=== PATIENT | male | born 1955 | race Caucasian/White ===

== ENCOUNTER 2017-07-02 20:50 | Emergency (ER) | payer BC ==
[~2017-07-02] VITALS: Ht 177.8 cm; Wt 72.6 kg
[2017-07-02 21:01] VITALS: BP_SYST 144
[2017-07-02] MEDS ORDERED: NACL 0.9% 1,000 ML IV ONE (21:22)
[2017-07-02] MEDS ORDERED: ASPIRIN 325 MG TABLET PO ONE (21:30)
[2017-07-02] MEDS ORDERED: methylPREDNISolone SOD SUCC/PF 62.5 MG/ML VIAL IVP ONE (21:30)
[2017-07-02] MEDS ORDERED: ALBUTEROL SULFATE 0.083% 2.5 MG/3 ML VIAL.NEB IH ONE (21:30)
[2017-07-02] MEDS ORDERED: IPRATROPIUM BROM 0.5 MG/2.5 ML VIAL.NEB (ATROVENT) IH ONE (21:30)
[2017-07-02] MEDS ORDERED: MAGNESIUM SULFATE 50 ML IV ONE (21:30)
[2017-07-02] MEDS ORDERED: MORPHINE 2 MG/ML INJ. SYRINGE IVP ONE (21:30)
[2017-07-02 21:50] LABS: HEMOGLOBIN 15.4 g/dL (14.0-18.0)
[2017-07-02 21:55] LABS: HEMATOCRIT 46.3 % (36-54); MEAN CORPUSCULAR HEMOGLOBIN 33 pg (27-31); MEAN CORPUSCULAR HGB CONC 33 % (32-36); MEAN CORPUSCULAR VOLUME 99 fL (79.0-98.0); PLATELET COUNT (AUTO) 328 K/uL (130-430); RED BLOOD CELL COUNT(AUTO) 4.67 MIL/uL (4.2-6.2); RED CELL DISTRIBUTION WIDTH 13.1 % (9.0-15.0); WHITE BLOOD COUNT (AUTO) 11.4 K/uL (4.8-10.8)
[2017-07-02 21:59] LABS: CALCIUM 9.5 mg/dL (8.4-11.0); CREATININE 1.07 mg/dL (0.55-1.30); POTASSIUM 3.7 mmol/L (3.5-5.1)
[2017-07-02 22:05] LABS: TOTAL BILIRUBIN 0.5 mg/dL (0.0-1.0)
[2017-07-02 22:11] LABS: PROTHROMBIN TIME 10.2 SECS (9.5-12.5)
[2017-07-02 22:15] LABS: BAND % (MANUAL) 3 % (0-6); LYMPHOCYTES % (MANUAL) 7 % (20-46); MONOCYTES % (MANUAL) 11 % (0-11)
[2017-07-02 22:16] LABS: BASOPHILS % (MANUAL) 0 % (0-2); EOSINOPHILS % (MANUAL) 1 % (0-7)
[2017-07-02] MEDS ORDERED: BUDE6HFA INH (22:30)
[2017-07-02] MEDS ORDERED: XOPMDI INH (22:30)
[2017-07-02] MEDS ORDERED: IPRA4AER INH (22:31)
[2017-07-02] MEDS ORDERED: ALBU2.5V7 INH (22:32)
[2017-07-02] MEDS ORDERED: LOSA100T11 PO (22:32)
[2017-07-02] MEDS ORDERED: HYDR-1115 PO (22:33)
[2017-07-02] MEDS ORDERED: NOR10 PO (22:34)
[2017-07-02] MEDS ORDERED: TRIA1CAP2 PO (22:34)
[2017-07-02] MEDS ORDERED: BIMA2.5D5 OP (22:35)
[2017-07-02] MEDS ORDERED: ALPHAGAN1 OP (22:35)
[2017-07-02] MEDS ORDERED: BRIN10DR EACH EYE (22:36)
[2017-07-02] MEDS ORDERED: TIMO5DRO16 OP (22:40)
[2017-07-02 23:25] VITALS: BP_SYST 142
== END 2017-07-02 23:25 | disposition home or self-care (01) ==
LOC: SED 20:50
DX: S80.12XA Contusion of left lower leg, initial encounter (principal); J44.1 Chronic obstructive pulmonary disease with (acute) exacerbation; J40 Bronchitis, not specified as acute or chronic; I10 Essential (primary) hypertension; F17.210 Nicotine dependence, cigarettes, uncomplicated; Z76.1 Encounter for health supervision and care of foundling; Z88.5 Allergy status to narcotic agent; Z88.6 Allergy status to analgesic agent; Z79.899 Other long term (current) drug therapy; X58.XXXA Exposure to other specified factors, initial encounter; Y93.9 Activity, unspecified; Y92.89 Other specified places as the place of occurrence of the external cause; Y99.8 Other external cause status
CPT/HCPCS: 36415; 71045; 80053; 82150; 82550; 83690; 83880; 85007; 85027; 85379; 85610; 85730; 93005; 94640; 96365; 96375; 99285; J2930; J3475; J7030

== ENCOUNTER 2017-07-17 22:46 | Inpatient (IN) | payer BC ==
[~2017-07-17] VITALS: Ht 177.8 cm; Wt 74.8 kg
[2017-07-17 22:46] VITALS: BP_SYST 151
[~2017-07-17 22:46] MED LIST: ALBU2.5V7 INH; ALPHAGAN1 OP; BIMA2.5D5 OP; BRIN10DR EACH EYE; BUDE6HFA INH; HYDR-1115 PO; IPRA4AER INH; LOSA100T11 PO; NOR10 PO; TIMO5DRO16 OP; TRIA1CAP2 PO; XOPMDI INH
[2017-07-17] MEDS ORDERED: methylPREDNISolone SOD SUCC/PF 62.5 MG/ML VIAL IVP ONE (23:15)
[2017-07-17] MEDS ORDERED: NACL 0.9% 1,000 ML IV ONE (23:15)
[2017-07-17] MEDS ORDERED: IPRATROPIUM/ALBUTEROL SULFATE 3 ML AMPUL.NEB INH ONE (23:15)
[2017-07-17] MEDS ORDERED: MAGNESIUM SULFATE 50 ML IV ONE (23:15)
[2017-07-17 23:39] LABS: HEMATOCRIT 43.7 % (36-54); HEMOGLOBIN 14.9 g/dL (14.0-18.0); MEAN CORPUSCULAR HEMOGLOBIN 33 pg (27-31); MEAN CORPUSCULAR HGB CONC 34 % (32-36); MEAN CORPUSCULAR VOLUME 98 fL (79.0-98.0); PLATELET COUNT (AUTO) 279 K/uL (130-430); RED BLOOD CELL COUNT(AUTO) 4.48 MIL/uL (4.2-6.2); RED CELL DISTRIBUTION WIDTH 12.6 % (9.0-15.0); WHITE BLOOD COUNT (AUTO) 15.2 K/uL (4.8-10.8)
[2017-07-17 23:52] LABS: CALCIUM 8.1 mg/dL (8.4-11.0); CREATININE 1.06 mg/dL (0.55-1.30); POTASSIUM 3.8 mmol/L (3.5-5.1)
[2017-07-17 23:56] LABS: PROTHROMBIN TIME 10.3 SECS (9.5-12.5)
[2017-07-18 00:03] LABS: ALBUMIN 3.4 g/dL (3.4-4.8); TOTAL BILIRUBIN 0.5 mg/dL (0.0-1.0)
[2017-07-18] MEDS ORDERED: IPRATROPIUM/ALBUTEROL SULFATE 3 ML AMPUL.NEB INH ONE (00:15)
[2017-07-18 00:26] LABS: BASOPHILS % (MANUAL) 0 % (0-2); EOSINOPHILS % (MANUAL) 3 % (0-7); LYMPHOCYTES % (MANUAL) 4 % (20-46); MONOCYTES % (MANUAL) 9 % (0-11)
[2017-07-18] MEDS ORDERED: PIPERACILLIN/TAZO 3.375 GM in NS 50 ML IV ONE (00:30)
[2017-07-18] MEDS ORDERED: PIPERACILLIN/TAZOBACTAM 3.375 GM/VIAL (ZOSYN) IV ONE ×2 (00:54→04:07)
[2017-07-18 01:25] VITALS: BP_SYST 134
[2017-07-18] MEDS: IPRATROPIUM/ALBUTEROL SULFATE 3 ML AMPUL.NEB INH SCH ×6 (03:21→23:00)
[2017-07-18 03:25] VITALS: BP_SYST 134
[2017-07-18] MEDS: methylPREDNISolone SOD SUCC/PF 62.5 MG/ML VIAL IVP SCH ×4 (05:58→23:59)
[2017-07-18] MEDS: PIPERACILLIN/TAZO 3.375/DEX-IS 50 ML IV SCH ×4 (06:00→23:59)
[2017-07-18] MEDS: AZITHROMYCIN 250 MG TABLET PO SCH (06:01)
[2017-07-18] MEDS ORDERED: AZITHROMYCIN 250 MG TABLET PO SCH ×2 (07:00→09:00)
[2017-07-18 08:32] VITALS: BP_SYST 140
[2017-07-18] MEDS: DORZOLAMIDE 2% OPHTHALMIC SOLN 5ML OP SCH ×2 (09:00→21:00)
[2017-07-18] MEDS: TIMOLOL MALEATE 0.25% OPHTHALMIC DROPS 5 ML BOTH EYES SCH (09:05)
[2017-07-18] MEDS: BRIMONIDINE TARTRATE 0.2% 5 mL EYE DROPS BOTH EYES SCH ×3 (09:05→21:33)
[2017-07-18] MEDS: LOSARTAN POTASSIUM 50 MG TABLET (COZAAR) PO SCH (09:06)
[2017-07-18] MEDS: hydrALAZINE HCL 25 MG TABLET PO SCH ×2 (09:06→21:31)
[2017-07-18] MEDS: TRIAMTERENE/HYDROCHLOROTHIAZID 1 CAP CAPSULE (DYAZIDE37.5/25) PO SCH (09:06)
[2017-07-18] MEDS: amLODIPine BESYLATE 10 MG TABLET PO SCH (09:07)
[2017-07-18 11:40] VITALS: BP_SYST 153
[2017-07-18 16:00] VITALS: BP_SYST 141
[2017-07-18 20:20] VITALS: BP_SYST 141
[2017-07-18] MEDS: LATANOPROST 2.5 ML DROPS (XALATAN) OP SCH (21:34)
[2017-07-19 00:52] VITALS: BP_SYST 119
[2017-07-19] MEDS: IPRATROPIUM/ALBUTEROL SULFATE 3 ML AMPUL.NEB INH SCH ×6 (03:00→23:38)
[2017-07-19] MEDS: AZITHROMYCIN 250 MG TABLET PO SCH (06:21)
[2017-07-19] MEDS: PIPERACILLIN/TAZO 3.375/DEX-IS 50 ML IV SCH ×4 (06:21→23:49)
[2017-07-19] MEDS: methylPREDNISolone SOD SUCC/PF 62.5 MG/ML VIAL IVP SCH ×3 (06:21→21:52)
[2017-07-19 06:24] LABS: BASOPHILS # (AUTO) 0.1 K/uL (0.0-0.2); HEMATOCRIT 47.3 % (36-54); HEMOGLOBIN 15.6 g/dL (14.0-18.0); LYMPHOCYTES # (AUTO) 0.3 K/uL (1.0-5.5); LYMPHOCYTES % (AUTO) 3.1 % (20.5-51.5); MEAN CORPUSCULAR HEMOGLOBIN 33 pg (27-31); MEAN CORPUSCULAR HGB CONC 33 % (32-36); MEAN CORPUSCULAR VOLUME 100 fL (79.0-98.0); MONOCYTES # (AUTO) 0.3 K/uL (0.0-1.0); MONOCYTES % (AUTO) 3.7 % (1.7-9.3); NEUTROPHILS # (AUTO) 8.7 K/uL (1.8-7.7); NEUTROPHILS % (AUTO) 92.2 % (40.0-70.0); PLATELET COUNT (AUTO) 296 K/uL (130-430); RED BLOOD CELL COUNT(AUTO) 4.75 MIL/uL (4.2-6.2); RED CELL DISTRIBUTION WIDTH 12.5 % (9.0-15.0); WHITE BLOOD COUNT (AUTO) 9.4 K/uL (4.8-10.8)
[2017-07-19 06:47] LABS: ALANINE AMINOTRANSFERASE 38 U/L (12-78); ALBUMIN 3.3 g/dL (3.4-4.8); ASPARTATE AMINOTRANSFERASE 30 U/L (10-37); CALCIUM 8.8 mg/dL (8.4-11.0); CHLORIDE 86 mmol/L (98-107); CREATININE 1.12 mg/dL (0.55-1.30); FREE T4 (FREE THYROXINE) 0.9 ng/dL (0.6-1.6); GLUCOSE 145 mg/dL (70-99); POTASSIUM 4.2 mmol/L (3.5-5.1); SODIUM SERUM 126 mmol/L (136-145); TOTAL BILIRUBIN 0.4 mg/dL (0.0-1.0); UREA NITROGEN, BLOOD 14 mg/dL (8-21)
[2017-07-19 06:53] LABS: ANION GAP < 3 (5-15); GFR AFRICAN AMERICAN 86 mL/min (>90)
[2017-07-19 08:00] VITALS: BP_SYST 120
[2017-07-19] MEDS: LOSARTAN POTASSIUM 50 MG TABLET (COZAAR) PO SCH (08:54)
[2017-07-19] MEDS: hydrALAZINE HCL 25 MG TABLET PO SCH ×2 (08:55→21:53)
[2017-07-19] MEDS: TRIAMTERENE/HYDROCHLOROTHIAZID 1 CAP CAPSULE (DYAZIDE37.5/25) PO SCH (08:55)
[2017-07-19] MEDS: amLODIPine BESYLATE 10 MG TABLET PO SCH (08:56)
[2017-07-19] MEDS: TIMOLOL MALEATE 0.25% OPHTHALMIC DROPS 5 ML BOTH EYES SCH (08:56)
[2017-07-19] MEDS: BRIMONIDINE TARTRATE 0.2% 5 mL EYE DROPS BOTH EYES SCH ×3 (08:57→21:55)
[2017-07-19] MEDS: DORZOLAMIDE 2% OPHTHALMIC SOLN 5ML OP SCH ×2 (09:00→21:00)
[2017-07-19 12:00] VITALS: BP_SYST 127
[2017-07-19 16:32] VITALS: BP_SYST 123
[2017-07-19] MEDS ORDERED: FOLIC ACID 1 MG TABLET PO ONE (18:00)
[2017-07-19] MEDS ORDERED: THIAMINE HCL 100 MG TABLET PO ONE (18:00)
[2017-07-19 20:00] VITALS: BP_SYST 118
[2017-07-19] MEDS: LATANOPROST 2.5 ML DROPS (XALATAN) OP SCH (21:53)
[2017-07-19 23:19] VITALS: BP_SYST 134
[2017-07-20 00:06] VITALS: BP_SYST 124
[2017-07-20] MEDS: IPRATROPIUM/ALBUTEROL SULFATE 3 ML AMPUL.NEB INH SCH ×6 (03:00→23:08)
[2017-07-20] MEDS: PIPERACILLIN/TAZO 3.375/DEX-IS 50 ML IV SCH ×4 (06:29→23:57)
[2017-07-20] MEDS: methylPREDNISolone SOD SUCC/PF 62.5 MG/ML VIAL IVP SCH ×3 (06:29→21:35)
[2017-07-20] MEDS: AZITHROMYCIN 250 MG TABLET PO SCH (06:29)
[2017-07-20 07:33] LABS: ANION GAP 4 (5-15); CALCIUM 9.1 mg/dL (8.4-11.0); CHLORIDE 88 mmol/L (98-107); CREATININE 1.28 mg/dL (0.55-1.30); GLUCOSE 149 mg/dL (70-99); POTASSIUM 3.7 mmol/L (3.5-5.1); SODIUM SERUM 129 mmol/L (136-145); UREA NITROGEN, BLOOD 28 mg/dL (8-21)
[2017-07-20 07:42] LABS: GFR AFRICAN AMERICAN 74 mL/min (>90)
[2017-07-20 07:52] LABS: ALANINE AMINOTRANSFERASE 36 U/L (12-78); ALBUMIN 3.2 g/dL (3.4-4.8); ASPARTATE AMINOTRANSFERASE 30 U/L (10-37); THYROID STIMULATING HORMONE 1.63 uIu/mL (0.36-3.74); TOTAL BILIRUBIN 0.3 mg/dL (0.0-1.0)
[2017-07-20 08:04] VITALS: BP_SYST 147
[2017-07-20] MEDS: BRIMONIDINE TARTRATE 0.2% 5 mL EYE DROPS BOTH EYES SCH ×3 (08:45→21:25)
[2017-07-20] MEDS: TIMOLOL MALEATE 0.25% OPHTHALMIC DROPS 5 ML BOTH EYES SCH (08:46)
[2017-07-20] MEDS: DORZOLAMIDE 2% OPHTHALMIC SOLN 5ML OP SCH ×2 (08:46→21:00)
[2017-07-20] MEDS: TRIAMTERENE/HYDROCHLOROTHIAZID 1 CAP CAPSULE (DYAZIDE37.5/25) PO SCH (08:47)
[2017-07-20] MEDS: FOLIC ACID 1 MG TABLET PO SCH (08:47)
[2017-07-20] MEDS: LOSARTAN POTASSIUM 50 MG TABLET (COZAAR) PO SCH (08:47)
[2017-07-20] MEDS: hydrALAZINE HCL 25 MG TABLET PO SCH ×2 (08:48→21:26)
[2017-07-20] MEDS: THIAMINE HCL 100 MG TABLET PO SCH (08:48)
[2017-07-20] MEDS: amLODIPine BESYLATE 10 MG TABLET PO SCH (08:48)
[2017-07-20] MEDS: DILTIAZEM HCL 180 MG CAP.SR.24H PO SCH (10:11)
[2017-07-20 12:36] VITALS: BP_SYST 130
[2017-07-20 15:55] VITALS: BP_SYST 108
[2017-07-20 20:12] VITALS: BP_SYST 122
[2017-07-20] MEDS: LATANOPROST 2.5 ML DROPS (XALATAN) OP SCH (21:25)
[2017-07-20] MEDS: ENOXAPARIN SODIUM 40 MG/0.4 ML SYRINGE SUBCUT SCH (21:27)
[2017-07-20 23:00] VITALS: BP_SYST 119
[2017-07-21] MEDS: IPRATROPIUM/ALBUTEROL SULFATE 3 ML AMPUL.NEB INH SCH ×6 (03:28→23:13)
[2017-07-21] MEDS: methylPREDNISolone SOD SUCC/PF 62.5 MG/ML VIAL IVP SCH ×2 (05:17→12:59)
[2017-07-21] MEDS: PIPERACILLIN/TAZO 3.375/DEX-IS 50 ML IV SCH ×3 (05:18→17:54)
[2017-07-21] MEDS: AZITHROMYCIN 250 MG TABLET PO SCH (06:23)
[2017-07-21 07:05] LABS: BASOPHILS % (AUTO) 0.1 % (0.0-2.0); HEMATOCRIT 48.8 % (36-54); LYMPHOCYTES # (AUTO) 0.2 K/uL (1.0-5.5); LYMPHOCYTES % (AUTO) 2.6 % (20.5-51.5); MEAN CORPUSCULAR HEMOGLOBIN 33 pg (27-31); MEAN CORPUSCULAR HGB CONC 33 % (32-36); MEAN CORPUSCULAR VOLUME 99 fL (79.0-98.0); MONOCYTES # (AUTO) 0.3 K/uL (0.0-1.0); MONOCYTES % (AUTO) 2.9 % (1.7-9.3); NEUTROPHILS # (AUTO) 8.6 K/uL (1.8-7.7); NEUTROPHILS % (AUTO) 94.4 % (40.0-70.0); PLATELET COUNT (AUTO) 347 K/uL (130-430); RED BLOOD CELL COUNT(AUTO) 4.92 MIL/uL (4.2-6.2); RED CELL DISTRIBUTION WIDTH 12.5 % (9.0-15.0); WHITE BLOOD COUNT (AUTO) 9.1 K/uL (4.8-10.8)
[2017-07-21 07:34] LABS: CALCIUM 8.9 mg/dL (8.4-11.0); CREATININE 1.16 mg/dL (0.55-1.30); POTASSIUM 3.8 mmol/L (3.5-5.1)
[2017-07-21 08:00] VITALS: BP_SYST 141
[2017-07-21] MEDS: TIMOLOL MALEATE 0.25% OPHTHALMIC DROPS 5 ML BOTH EYES SCH (08:00)
[2017-07-21] MEDS: BRIMONIDINE TARTRATE 0.2% 5 mL EYE DROPS BOTH EYES SCH ×3 (08:00→21:17)
[2017-07-21] MEDS: LOSARTAN POTASSIUM 50 MG TABLET (COZAAR) PO SCH (08:01)
[2017-07-21] MEDS: THIAMINE HCL 100 MG TABLET PO SCH (08:01)
[2017-07-21] MEDS: FOLIC ACID 1 MG TABLET PO SCH (08:02)
[2017-07-21] MEDS: hydrALAZINE HCL 25 MG TABLET PO SCH ×2 (08:02→21:18)
[2017-07-21] MEDS: DILTIAZEM HCL 180 MG CAP.SR.24H PO SCH (08:03)
[2017-07-21] MEDS: DORZOLAMIDE 2% OPHTHALMIC SOLN 5ML OP SCH ×2 (09:00→21:00)
[2017-07-21 11:13] VITALS: BP_SYST 141
[2017-07-21 12:34] VITALS: BP_SYST 105
[2017-07-21] MEDS: methylPREDNISolone SOD SUCC 40 MG/ML VIAL IVP SCH ×2 (14:00→21:44)
[2017-07-21] MEDS ORDERED: AMIODARONE HCL 200 MG TABLET PO ONE (15:15)
[2017-07-21 16:16] VITALS: BP_SYST 110
[2017-07-21 20:00] VITALS: BP_SYST 132
[2017-07-21] MEDS: ENOXAPARIN SODIUM 40 MG/0.4 ML SYRINGE SUBCUT SCH (21:16)
[2017-07-21] MEDS: LATANOPROST 2.5 ML DROPS (XALATAN) OP SCH (21:17)
[2017-07-21] MEDS: AMIODARONE HCL 200 MG TABLET PO SCH (21:45)
[2017-07-22] VITALS: BP_SYST 113
[2017-07-22] MEDS: PIPERACILLIN/TAZO 3.375/DEX-IS 50 ML IV SCH ×4 (00:20→17:20)
[2017-07-22] MEDS: IPRATROPIUM/ALBUTEROL SULFATE 3 ML AMPUL.NEB INH SCH ×5 (03:00→23:28)
[2017-07-22 06:02] VITALS: BP_SYST 125
[2017-07-22] MEDS: methylPREDNISolone SOD SUCC 40 MG/ML VIAL IVP SCH ×2 (06:04→14:12)
[2017-07-22] MEDS: AMIODARONE HCL 200 MG TABLET PO SCH ×3 (06:05→21:28)
[2017-07-22] MEDS: AZITHROMYCIN 250 MG TABLET PO SCH (06:43)
[2017-07-22 06:54] LABS: CALCIUM 8.6 mg/dL (8.4-11.0); CHLORIDE 92 mmol/L (98-107); CREATININE 1.15 mg/dL (0.55-1.30); GLUCOSE 139 mg/dL (70-99); POTASSIUM 3.7 mmol/L (3.5-5.1); SODIUM SERUM 127 mmol/L (136-145); UREA NITROGEN, BLOOD 29 mg/dL (8-21)
[2017-07-22 07:03] LABS: ANION GAP < 3 (5-15); GFR AFRICAN AMERICAN 83 mL/min (>90)
[2017-07-22 08:04] VITALS: BP_SYST 111
[2017-07-22] MEDS: BRIMONIDINE TARTRATE 0.2% 5 mL EYE DROPS BOTH EYES SCH ×3 (08:50→21:28)
[2017-07-22] MEDS: TIMOLOL MALEATE 0.25% OPHTHALMIC DROPS 5 ML BOTH EYES SCH (08:50)
[2017-07-22] MEDS: DILTIAZEM HCL 180 MG CAP.SR.24H PO SCH (08:51)
[2017-07-22] MEDS: DORZOLAMIDE 2% OPHTHALMIC SOLN 5ML OP SCH ×2 (08:51→21:00)
[2017-07-22] MEDS: FOLIC ACID 1 MG TABLET PO SCH (08:52)
[2017-07-22] MEDS: THIAMINE HCL 100 MG TABLET PO SCH (08:52)
[2017-07-22] MEDS: hydrALAZINE HCL 25 MG TABLET PO SCH (08:52)
[2017-07-22] MEDS: LOSARTAN POTASSIUM 50 MG TABLET (COZAAR) PO SCH (08:52)
[2017-07-22 12:14] VITALS: BP_SYST 118
[2017-07-22 16:58] VITALS: BP_SYST 118
[2017-07-22 20:00] VITALS: BP_SYST 138
[2017-07-22] MEDS: ENOXAPARIN SODIUM 40 MG/0.4 ML SYRINGE SUBCUT SCH (21:28)
[2017-07-22] MEDS: PREDNISONE 20 MG TABLET PO SCH (21:28)
[2017-07-22] MEDS: LATANOPROST 2.5 ML DROPS (XALATAN) OP SCH (21:29)
[2017-07-23] MEDS: PIPERACILLIN/TAZO 3.375/DEX-IS 50 ML IV SCH ×3 (00:15→11:11)
[2017-07-23 01:24] VITALS: BP_SYST 124
[2017-07-23] MEDS: IPRATROPIUM/ALBUTEROL SULFATE 3 ML AMPUL.NEB INH SCH ×3 (04:20→11:36)
[2017-07-23] MEDS: AMIODARONE HCL 200 MG TABLET PO SCH (06:09)
[2017-07-23 07:43] VITALS: BP_SYST 111
[2017-07-23 08:03] VITALS: BP_SYST 129
[2017-07-23] MEDS: LOSARTAN POTASSIUM 50 MG TABLET (COZAAR) PO SCH (08:15)
[2017-07-23] MEDS: PREDNISONE 20 MG TABLET PO SCH (08:18)
[2017-07-23] MEDS: THIAMINE HCL 100 MG TABLET PO SCH (08:18)
[2017-07-23] MEDS: FOLIC ACID 1 MG TABLET PO SCH (08:19)
[2017-07-23] MEDS: BRIMONIDINE TARTRATE 0.2% 5 mL EYE DROPS BOTH EYES SCH (08:23)
[2017-07-23] MEDS: TIMOLOL MALEATE 0.25% OPHTHALMIC DROPS 5 ML BOTH EYES SCH (08:23)
[2017-07-23] MEDS: DORZOLAMIDE 2% OPHTHALMIC SOLN 5ML OP SCH (08:23)
[2017-07-23] MEDS ORDERED: hydrALAZINE HCL 25 MG TABLET PO SCH (09:00)
[2017-07-23] MEDS ORDERED: DILTIAZEM HCL 180 MG CAP.SR.24H PO SCH (09:00)
[2017-07-23] MEDS ORDERED: DILTIAZEM HCL 240 MG CAP.SR.24H PO SCH (09:00)
[2017-07-23 12:14] VITALS: BP_SYST 111
[2017-07-23] MEDS ORDERED: RIVAROXABAN 10 MG TABLET PO SCH (18:00)
[2017-07-23] MEDS ORDERED: AMIODARONE HCL 200 MG TABLET PO SCH (21:00)
== END 2017-07-23 13:05 | disposition home or self-care (01) | DRG 189 ==
LOC: SED 22:46 → STU 07-18 00:36 → SMU 07-19 15:39 → STU 07-20 10:26
PROVIDERS: ADMIT Internal Medicine; ATTEND Internal Medicine
PROC: 5A09357 Assistance with Respiratory Ventilation, Less than 24 Consecutive Hours, Continuous Positive Airway Pressure (ICD-10-PCS; principal; 2017-07-18)
PROC: 5A09357 Assistance with Respiratory Ventilation, Less than 24 Consecutive Hours, Continuous Positive Airway Pressure (ICD-10-PCS; 2017-07-21)
DX: J96.00 Acute respiratory failure, unspecified whether with hypoxia or hypercapnia (principal); E44.1 Mild protein-calorie malnutrition; J44.1 Chronic obstructive pulmonary disease with (acute) exacerbation; E87.1 Hypo-osmolality and hyponatremia; I10 Essential (primary) hypertension; F17.210 Nicotine dependence, cigarettes, uncomplicated; I35.1 Nonrheumatic aortic (valve) insufficiency; F10.20 Alcohol dependence, uncomplicated; Y90.9 Presence of alcohol in blood, level not specified; I48.91 Unspecified atrial fibrillation; I25.10 Atherosclerotic heart disease of native coronary artery without angina pectoris; I48.0 Paroxysmal atrial fibrillation; Z71.6 Tobacco abuse counseling; Z71.41 Alcohol abuse counseling and surveillance of alcoholic; Z88.6 Allergy status to analgesic agent; Z82.49 Family history of ischemic heart disease and other diseases of the circulatory system; Z79.899 Other long term (current) drug therapy; Z68.23 Body mass index [BMI] 23.0-23.9, adult
CPT/HCPCS: 36415; 36600; 71045; 71250-TC; 80048; 80053; 82803-TC; 83605; 83735-TC; 83880; 83930-TC; 83935-TC; 84302-TC; 84439; 84443-TC; 84484; 84999-TC; 85007; 85025; 85027; 85610-TC; 85730-TC; 87040-TC; 93005; 93306; 93970; 94640; 94760; 96365; 96367; 96375; 99285; J1030; J1120; J1650; J2543; J2930; J3475; J7030; J7512; Q0144

== ENCOUNTER 2018-07-18 07:18 | Emergency (ER) | payer BC ==
[~2018-07-18] VITALS: Ht 177.8 cm; Wt 73.5 kg
[~2018-07-18 07:18] MED LIST changes: -HYDR-1115 PO; -LOSA100T11 PO; +LOSA100T3 PO; -NOR10 PO; -TRIA1CAP2 PO
[2018-07-18 07:20] VITALS: BP_SYST 190
[2018-07-18] MEDS ORDERED: DEXAMETHASONE SOD PHOSPHATE 10 MG/ML VIAL IVP ONE (07:45)
[2018-07-18] MEDS ORDERED: IPRATROPIUM/ALBUTEROL SULFATE 3 ML AMPUL.NEB (DUONEB) INH ONE ×2 (07:45→08:15)
[2018-07-18 07:57] LABS: BASOPHILS # (AUTO) 0.1 K/uL (0.0-0.2); BASOPHILS % (AUTO) 1.3 % (0.0-2.0); EOSINOPHILS # (AUTO) 0.4 K/uL (0.0-0.4); EOSINOPHILS % (AUTO) 4.2 % (0.0-4.0); HEMATOCRIT 51.2 % (36-54); HEMOGLOBIN 17.1 g/dL (14.0-18.0); LYMPHOCYTES # (AUTO) 0.8 K/uL (1.0-5.5); LYMPHOCYTES % (AUTO) 8.1 % (20.5-51.5); MEAN CORPUSCULAR HEMOGLOBIN 34 pg (27-31); MEAN CORPUSCULAR HGB CONC 33 % (32-36); MEAN CORPUSCULAR VOLUME 101 fL (79.0-98.0); MONOCYTES # (AUTO) 0.9 K/uL (0.0-1.0); NEUTROPHILS # (AUTO) 7.1 K/uL (1.8-7.7); NEUTROPHILS % (AUTO) 76.4 % (40.0-70.0); PLATELET COUNT (AUTO) 312 K/uL (130-430); RED BLOOD CELL COUNT(AUTO) 5.09 MIL/uL (4.2-6.2); RED CELL DISTRIBUTION WIDTH 12.6 % (9.0-15.0); WHITE BLOOD COUNT (AUTO) 9.3 K/uL (4.8-10.8)
[2018-07-18 07:59] LABS: CREATININE 0.66 mg/dL (0.55-1.30); POTASSIUM 4.7 mmol/L (3.5-5.1)
[2018-07-18 08:07] LABS: ALBUMIN 4.1 g/dL (3.4-4.8); TOTAL BILIRUBIN 0.6 mg/dL (0.0-1.0)
[2018-07-18 08:13] LABS: PROTHROMBIN TIME 9.8 SECS (9.5-12.5)
[2018-07-18] MEDS ORDERED: IPRATROPIUM/ALBUTEROL SULFATE 3 ML AMPUL.NEB (DUONEB) ONE (08:26)
[2018-07-18 09:44] VITALS: BP_SYST 133
== END 2018-07-18 09:44 | disposition home or self-care (01) ==
LOC: SED 07:18
DX: J44.1 Chronic obstructive pulmonary disease with (acute) exacerbation (principal); I10 Essential (primary) hypertension; Z88.5 Allergy status to narcotic agent; Z88.6 Allergy status to analgesic agent; Z79.899 Other long term (current) drug therapy
CPT/HCPCS: 36415; 71045; 80053; 83880; 84484; 85025; 85610; 85730; 93005; 94640; 96374; 99284; J1100; J7620